=== PATIENT | female | born 1945 | race Caucasian/White ===

== ENCOUNTER 2018-02-10 08:28 | Day surgery (SDC) | payer MEDICARE ==
[~2018-02-10 08:28] MED LIST: ACETAMINOPHEN 1,000 MG/100 ML BTL IV ONE; FAMOTIDINE 20MG TABLET PO ONE; MECLIZINE 25 MG TABLET PO ONE; METOCLOPRAMIDE 10 MG TABLET PO ONE
[2018-02-10] MEDS ORDERED: HYDROCODONE/APAP 5/325MG TABLET PO ONE (08:29)
[2018-02-10] MEDS ORDERED: DESFLURANE 240 ML BTL INH ONE (08:29)
[2018-02-10] MEDS ORDERED: DEXAMETHASONE 4 MG/ML 1ML VIAL IVP ONE (08:29)
[2018-02-10] MEDS ORDERED: SCOPOLAMINE 1 PATCH TDSY TD ONE (08:29)
[2018-02-10] MEDS ORDERED: SUCCINYLCHOLINE 20 MG/ML 10ML IVP ONE (08:29)
[2018-02-10] MEDS ORDERED: METOCLOPRAMIDE HCL 10 MG/2 ML VIAL IVP ONE (08:29)
[2018-02-10] MEDS ORDERED: BUPIVACAINE 0.25% W/EPI MPF 30ML VIAL IVP ONE (08:29)
[2018-02-10] MEDS ORDERED: HYDROMORPHONE HCL 2 MG/ML VIAL IV ONE (08:29)
[2018-02-10] MEDS ORDERED: ONDANSETRON HCL IV 4 MG/2 ML VIAL IVP ONE (08:29)
[2018-02-10] MEDS ORDERED: PROPOFOL 10 MG/ML VIAL IV ONE (08:29)
[2018-02-10] MEDS ORDERED: LIDOCAINE 2% MDV (20MG/ML) 20ML VIAL IV ONE (08:29)
[2018-02-10] MEDS ORDERED: PROMETHAZINE HCL 25 MG/ML VIAL IVP ONE (08:29)
[2018-02-10] MEDS ORDERED: ROCURONIUM BROMIDE 50MG/5ML VIAL IV ONE (08:29)
--- NOTE | 2018-02-11 10:10 | Operative Note ---
DATE OF SURGERY: 02/10/2018 Surgeon: Erick Dejesus DO PREOPERATIVE DIAGNOSIS: Cholelithiasis with cholecystitis. POSTOPERATIVE DIAGNOSIS: Cholelithiasis with cholecystitis. OPERATION: Laparoscopic cholecystectomy. Indications: The patient is a 73-year-old female who is having ongoing right subcostal postprandial pain. Imaging studies did reveal a thickened gallbladder wall with stones. We did discuss cholecystectomy versus medical management. She desired surgical intervention. Risks include but are not limited to bleeding, infection, acute or chronic pain, bile duct injury, bile leak. She understood this fully. Thereafter, consent was signed and questions answered. PROCEDURE: She was taken to the operating room and placed in the supine position. General anesthesia was administered per the department of anesthesia. The patient's abdomen was shaved and prepped in the usual fashion. At this time, adequate timeout was performed. She did receive preoperative DVT prophylaxis as well as Omnifev. At this time, the infraumbilical region was anesthetized with a total of 5 mL of 0.25% Sensorcaine with epinephrine. A 2 cm infraumbilical incision was made. This was carried down to the anterior rectus fascia. This was incised. Jaquelin clamps were placed on the fascial edges and brought up into the wound. Stay sutures of 0 Vicryl were placed. Posterior rectus sheath was identified and incised. The peritoneal cavity was entered bluntly. At this time, a 10 mm blunt Arthur port was placed. Adequate pneumoperitoneum established. Under direct visualization, additional 5 mm epigastric and two 5 mm right subcostal ports were placed. The gallbladder was then identified. This was retracted in a cephalad and lateral direction. As soon as we did retract this cephalad, it did rupture spilling non-purulent bile. This was suctioned free. At this time, the hepatocystic triangle was thoroughly dissected out. There was no aberrant anatomy, no posterior ductal structures. The cystic duct and cystic artery were clearly identified. We had an excellent critical view of safety after releasing the distal half of the gallbladder from the cystic plate. The cystic duct and cystic artery were each doubly clipped and cut in standard fashion. The gallbladder was then taken off the liver bed with the Mirza harmonic. This was then placed in EndoCatch bag and brought out infraumbilically. The right upper quadrant was rechecked. There was no bleeding noted, no bile leak noted. No spilled stones noted. At this time, pneumoperitoneum was released. All ports were removed. The fascia was closed with 0 Vicryl in a [id number] fashion. The skin of all ports was closed with 4-0 Vicryl. She was taken to the recovery room in satisfactory condition. FINDINGS ON SURGERY: Chronic cholecystitis. CC: DO AUDRA Mccoy
== END 2018-02-10 12:55 | disposition home or self-care (01) ==
LOC: SUR 08:28
PROVIDERS: ATTEND Surgery
DX: K80.10 Calculus of gallbladder with chronic cholecystitis without obstruction (principal)
CPT/HCPCS: 47562; 00790; J2405; J1170; J0330; J2550; J2765